=== PATIENT | female | born 1985 | race Caucasian/White ===

== ENCOUNTER 2016-08-31 13:14 | Emergency (ER) | payer OTHER ==
[2016-08-31 13:44] VITALS: BP 110/62; PULSE 80; TEMP 97.9; BMI 29.7
--- NOTE | 2016-08-31 15:22 | PDOC ---
History of Present Illness - General Chief Complaint: Pain, Acute Stated Complaint: ABD PAIN, 18 WKS Time Seen by Provider: 08/31/16 15:16 History Source: Patient Exam Limitations: No Limitations - History of Present Illness Travel History: No Initial Comments: 08/31/16 15:27 Patient is here with complaints of suprapubic pain and cramping. States radiates to back, and has had diarrhea for the past couple days. Denies fever, denies vaginal drainage or bleeding, denies any nausea vomiting. Denies any pain or burning with urine but states has some mild flank pain. Has taken no medications for relief, has never suffered from urinary tract infection. Has had an uncomplicated . 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 denies: stabbing Abdominal Pain Onset Location: reports: suprapubic Pain Radiation: reports: no radiation Activities at Onset: denies: none Alleviating Factors: improves with: None Past History - Travel Traveled outside of the country in the last 30 days: No Close contact w/someone who was outside of country & ill: No - Past Medical History Allergies/Adverse Reactions: Allergies Allergy/AdvReac Type Severity Reaction Status Date / Time No Known Allergies Allergy Verified 08/31/16 13:40 Home Medications: Ambulatory Orders NK [No Known Home Medication] 12/05/15 Asthma: Yes - Surgical History Appendectomy: Yes - Psycho/Social/Smoking Cessation Hx Anxiety: No Suicidal Ideation: No Smoking History: Never smoked Have you smoked in the past 12 months: No Hx Alcohol Use: No Drug/Substance Use Hx: No Substance Use Type: None Review of Systems - Review of Systems Able to Perform ROS?: Yes Is the patient limited Croatian proficient: Yes Constitutional: Yes: Symptoms Reported, See HPI, Malaise. No: Fever, Loss of Appetite HEENTM: No: Symptoms Reported Respiratory: No: Symptoms reported ABD/GI: Yes: Symptoms Reported, See HPI, Diarrhea, Abdominal cramping (mild lower abdomen and suprapubic). No: Abdominal Distended, Nausea, Poor Appetite, Poor Fluid Intake : Yes: See HPI. No: Symptoms Reported Musculoskeletal: Yes: See HPI, Back Pain. No: Symptoms Reported Neurological: Yes: See HPI. No: Symptoms reported All Other Systems: Reviewed and Negative *Physical Exam - Vital Signs Last Vital Signs Temp Pulse Resp BP Pulse Ox 97.9 F 80 14 110/62 99 08/31/16 13:40 08/31/16 13:40 08/31/16 13:40 08/31/16 13:40 08/31/16 13:40 - Physical Exam General Appearance: Yes: Nourished, Appropriately Dressed, Apparent Distress, Mild Distress HEENT: positive: EOMI, AN, Normal ENT Inspection, TMs Normal, Pharynx Normal Neck: positive: Supple. negative: Tender Respiratory/Chest: positive: Lungs Clear, Normal Breath Sounds. negative: Respiratory Distress Gastrointestinal/Abdominal: positive: Soft. negative: Tender (no reproduced tenderness to lower abdomen, has a gravid uterus without tenderness reproduced with palpation. 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 Urinalysis does not reveal a UTI however appearance and symptoms are consistent with a possible UTI. Reviewed that with patient and due to her will hold antibiotics pending culture report. Patient encouraged to rest, drink lots of fluids, and follow-up in 2 days for culture report and understands will be notified if there is a positive urinary tract infection and treatment has been this provided. 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 Understands will return to emergency department for any vaginal drainage or bleeding, fevers , worsened symptoms. *DC/Admit/Observation/Transfer Diagnosis at time of Disposition: Gastroenteritis - Discharge Dispostion Disposition: HOME Condition at time of disposition: Stable Admit: No - Patient Instructions Printed Discharge Instructions: DI for Viral Gastroenteritis -- Adult Additional Instructions: Rest, drink lots of fluids: Teas, water, soups Avoid contact with others until fevers and symptoms resolved Lots of handwashing and good hygiene Continue urxq-cdl-petbter medications for symptomatic relief Tylenol or Motrin for fever and pain Followup with private physician in one week for repeat urinalysis/reevaluation Return to emergency department for worsened symptoms, fevers, dehydration
[2016-08-31] MEDS ORDERED: ACETAMINOPHEN 325 MG TABLET (FP) ONE (15:33)
[2016-08-31 15:56] LABS: URINE APPEARANCE CLOUDY; URINE BILIRUBIN NEGATIVE (NEGATIVE); URINE BLOOD NEGATIVE (NEGATIVE); URINE COLOR YELLOW; URINE GLUCOSE (UA) NEGATIVE (NEGATIVE); URINE KETONE NEGATIVE (NEGATIVE); URINE LEUK ESTERASE NEGATIVE (NEGATIVE); URINE NITRITE NEGATIVE (NEGATIVE); URINE PROTEIN NEGATIVE (NEGATIVE); URINE UROBILINOGEN NEGATIVE E.U./dl (0.2-1.0)
== END 2016-08-31 16:21 | disposition home or self-care (01) ==
LOC: JER 13:14 → JERFT 13:14
DX: O26.892 Other specified pregnancy related conditions, second trimester (principal); K52.9 Noninfective gastroenteritis and colitis, unspecified; Z3A.18 18 weeks gestation of pregnancy
CPT/HCPCS: 81003; 87086; 99281-25

== ENCOUNTER 2019-07-07 14:40 | Emergency (ER) | payer OTHER ==
[2019-07-07 15:00] VITALS: BMI 31.6
--- NOTE | 2019-07-07 15:12 | PDOC ---
History of Present Illness - General Chief Complaint: Chest Pain Stated Complaint: MIGRANE - History of Present Illness Initial Comments: The pt is a 34F w/ a history of asthma who presents for evaluation of 3 days of cough, congestion, HOFFMANN, dizziness, subjective fevers, aches, and b/l chest pain. The chest pain is intermittent, b/l, burning/achy, non-radiating, worse after cough and touch, and not alleviated by anything she can identify. The HOFFMANN is b/l, gradual onset, non-radiating, and not associated with any other neurologic symptoms. Denies flu vaccine or sick contacts 07/07/19 15:25 Past History - Past Medical History Allergies/Adverse Reactions: Allergies Allergy/AdvReac Type Severity Reaction Status Date / Time No Known Allergies Allergy Verified 07/07/19 14:53 Home Medications: Ambulatory Orders predniSONE [Deltasone -] 40 mg PO DAILY #6 tablet 07/07/19 Asthma: Yes COPD: No - Surgical History Appendectomy: Yes - Psycho Social/Smoking Cessation Hx Smoking History: Never smoked Have you smoked in the past 12 months: No Information on smoking cessation initiated: No Hx Alcohol Use: No Drug/Substance Use Hx: No Substance Use Type: None Review of Systems - Review of Systems Able to Perform ROS?: Yes Comments:: GENERAL/CONSTITUTIONAL: No fever. No weakness HEAD, EYES, EARS, NOSE AND THROAT: No change in vision. No change in hearing. No sore throat CARDIOVASCULAR: No chest pain or shortness of breath RESPIRATORY: Denies hemoptysis GASTROINTESTINAL: +nausea; No vomiting, diarrhea or constipation GENITOURINARY: No dysuria, frequency, or change in urination MUSCULOSKELETAL: +myalgias SKIN: No rash NEUROLOGIC: No loss of consciousness, or change in strength/sensation ENDOCRINE: No increased thirst. No abnormal weight change HEMATOLOGIC/LYMPHATIC: No anemia, easy bleeding, or history of blood clots ALLERGIC/IMMUNOLOGIC: No hives or skin allergy 07/07/19 15:11 Is the patient limited Portuguese proficient: No *Physical Exam - Vital Signs Last Vital Signs Temp Pulse Resp BP Pulse Ox 99 H 18 127/81 97 07/07/19 14:55 07/07/19 14:55 07/07/19 14:55 07/07/19 14:55 - Physical Exam GENERAL: Awake, alert, and oriented to person/place/time, in no acute distress HEAD: No signs of trauma, normoc ephalic, atraumatic EYES: PERRLA, EOMI, sclera anicteric, conjunctiva clear ENT: Hearing grossly normal, nares patent, oropharynx clear without exudates. Moist mucosa LUNGS: No distress, speaks in full sentences, clear to auscultation bilaterally HEART: Regular rate and rhythm, normal S1 and S2, no murmurs appreciated, peripheral pulses normal and equal bilaterally CHEST: b/l thoracic wall TTP ABDOMEN: Soft, nontender, normoactive bowel sounds. No guarding, no rebound EXTREMITIES: Normal inspection, Normal range of motion, no edema. No clubbing or cyanosis NEUROLOGICAL: Cranial nerves II through XII grossly intact. Normal speech, normal gait, no focal sensorimotor deficits SKIN: Warm, Dry 07/07/19 15:11 ED Treatment Course - LABORATORY CBC & Chemistry Diagram: 07/07/19 16:01 07/07/19 17:04 Medical Decision Making - Medical Decision Making The pt is a 34F w/ a history of asthma who presents for evaluation of 3 days of cough, congestion, HOFFMANN, dizziness, subjective fevers, aches, and b/l chest pain. Consider viral syndrome, influenza, PNA, not likely ACS given age/risk/history/ exam ED Course CMP, CBC, Serum Preg, Flu swab CXR ECG IVF, Ofirmev, Reglan for symptomatic relief ECG w/ NSR; HR 91: QTc 430; no axis deviation; TWI III, V3-V4; No IBRAHIMA, abn ECG 07/07/19 15:28 No leukocytosis No anemia CXR w/o acute pathology 07/07/19 16:17 Influenza neg 07/07/19 17:31 Pt given duo-neb x2 and prednisone for wheezing which has since resolved Rx for Prednisone 40mg PO daily for 4 days sent to pt's pharmacy Plan for D/C w/ PCP f/u Discharge instructions and return precautions given Patient in agreement and verbalized understanding Dispo: Home 07/07/19 18:10 Discharge - Discharge Information Problems reviewed: Yes Clinical Impression/Diagnosis: Cough, Bronchitis Headache Qualifiers: Headache type: unspecified Headache chronicity pattern: acute headache Intractability: not intractable Qualified Code(s): R51 - Headache Condition: Stable Disposition: HOME - Admission No - Additional Discharge Information Prescriptions: predniSONE [Deltasone -] 40 mg PO DAILY #6 tablet - Follow up/Referral - Patient Discharge Instructions Patient Printed Discharge Instructions: DI for Viral Syndrome Additional Instructions: You were seen in the Emergency Department for evaluation of cough. Your symptoms are likely related to a virus and will likely self resolve within a week. Review the handout provided at discharge. Be sure to frequently wash your hands. Avoid close contact with young children, elderly, or weak immune system. Follow up with your primary care doctor within a week. You were prescribed Prednisone 40mg daily. Take for the next three days starting tomorrow, 07/08/2019. Lo vieron en el departamento de emergencias para evaluar la tos. Es probable que linda sntomas estn relacionados con un virus y es probable que se resuelvan en galileo semana. Revise el folleto proporcionado al osiris. Asegrese de lavarse las john con frecuencia. Evite el contacto cercano con nios pequeos, ancianos o un sistema inmunitario dbil. Tanner un seguimiento con syed mdico de atencin primaria dentro de galileo semana. Le recetaron 40 mg de prednisona al da. Tmelo para los prximos adrian cortes a partir de erendira mijares, 08/07/2019. - Post Discharge Activity Work/Back to School Note: Back to Work
[2019-07-07] MEDS ORDERED: ONDANSETRON 4 MG/2 ML VIAL IVPUSH ONE (15:45)
[2019-07-07] MEDS ORDERED: ACETAMINOPHEN 1000 MG/100 ML VIAL (NON FORMULARY) IVPB ONE (15:45)
[2019-07-07] MEDS ORDERED: ACETAMINOPHEN INJECTION 100 ML IVPB ONE (15:48)
[2019-07-07] MEDS ORDERED: ONDANSETRON 4 MG/2 ML VIAL ONE (15:48)
[2019-07-07] MEDS ORDERED: SODIUM CHLORIDE 0.9% 500 ML INFUS.BAG IV ONE (15:50)
[2019-07-07] MEDS ORDERED: METOCLOPRAMIDE HCL INJECTION 10 MG/2 ML VIAL IVPB ONE (16:03)
[2019-07-07] MEDS ORDERED: METOCLOPRAMIDE HCL INJECTION 10 MG/2 ML VIAL ONE (16:06)
[2019-07-07 16:08] LABS: BASO % 1.2 % (0-2.0); EOS % 0.9 % (0-4.5); HEMATOCRIT 33.5 % (32.4-45.2); HEMOGLOBIN 10.8 GM/dL (10.7-15.3); LYMPH % 31.7 % (8-40); MCH 24.3 pg (25.7-33.7); MCHC 32.2 g/dl (32.0-36.0); MEAN CELL VOLUME 75.5 fl (80-96); MEAN PLT VOLUME 8.3 fl (7.5-11.1); MONO % 14.1 % (3.8-10.2); NEUT % 52.1 % (42.8-82.8); PLATELET COUNT 286 K/MM3 (134-434); RBC 4.44 M/mm3 (3.60-5.2); RDW 17.2 % (11.6-15.6); WHITE BLOOD COUNT 3.2 K/mm3 (4.0-10.0)
[2019-07-07 17:33] LABS: ALBUMIN 3.4 g/dl (3.4-5.0); BILIRUBIN,TOTAL 0.3 mg/dL (0.2-1); BLOOD UREA NITROGEN 8.9 mg/dL (7-18); CALCIUM 8.8 mg/dL (8.5-10.1); CREATININE 0.7 mg/dL (0.55-1.3); POTASSIUM 3.7 mmol/L (3.5-5.1); TOT PROT 7.2 g/dl (6.4-8.2)
[2019-07-07] MEDS ORDERED: predniSONE 20 MG TABLET (UD) PO ONE (17:42)
[2019-07-07] MEDS ORDERED: ALBUTEROL SO4 2.5/IPRATROPIUM 0.5 INH SOL 3 ML VIAL.NEB. NEB SCH (17:45)
[2019-07-07] MEDS: ALBUTEROL SO4 2.5/IPRATROPIUM 0.5 INH SOL 3 ML VIAL.NEB. NEB SCH ×2 (17:45→18:01)
[2019-07-07 17:47] VITALS: BP 115/75; PULSE 72; TEMP 98.5
--- NOTE | 2019-07-07 17:48 | PDOC ---
Documentation entered by Jersey Cheatham SCRIBE, acting as scribe for Luz Maria Combs MD. Luz Maria Combs MD: This documentation has been prepared by the Linden nobles Daniel, SCRIBE, under my direction and personally reviewed by me in its entirety. I confirm that the documentation accurately reflects all work, treatment, procedures, and medical decision making performed by me. Attending Attestation - Resident Resident Name: Philippeana luisaGibran - ED Attending Attestation I have performed the following: I have examined & evaluated the patient, The case was reviewed & discussed with the resident, I agree w/resident's findings & plan, Exceptions are as noted - HPI HPI: 07/07/19 15:47 The patient is a 33 year old female with a past medical history of asthma here today for evaluation of cough and congestion. The patient reports that she has had 3 days of cough and congestion with associated bilateral chest achiness describes as sometimes burning, right arm achiness, general myalgia, and headache. She reports using her nebulizer treatments at home with minimal relief. Patient denies headache, lightheadedness. Denies fever, chills. Denies shortness of breath. Denies nausea, vomiting, diarrhea, abdominal pain. Allergies: NKA - Physicial Exam PE: 07/07/19 17:42 awake alert lungs with bilat wheezing , rhonchorous cough, heart rrr no mrg abd soft nt ext wwp no edema. no calf tenderness. - Medical Decision Making 07/07/19 17:45 34 yo F with h/o asthma here with cough sore throat nasal congestion and wheezing. has been using her inhaler at home some relief. does report subjective fever and chills. sick contact of her daughter with similar sxs. no n /v no abd pain. on my exam pt wtih rhonchorous breath sounds, wheezing at bases. normal effort. plan cxr lab ivf pain conrol flu swab negative. cxr negative. duoneb and steroids. will dc viral uri, bronchospasm Heart Score/ECG Review #1 ECG reviewed & interpreted by me at: 17:47 General ECG Interpretation: Sinus Rhythm, Normal Rate (91), Normal Intervals, No acute ischemic changes
[2019-07-07] MEDS ORDERED: ALBUTEROL SO4 2.5/IPRATROPIUM 0.5 INH SOL 3 ML VIAL.NEB. NEB ONE (17:52)
[2019-07-07] MEDS ORDERED: predniSONE 20 MG TABLET (UD) ONE (17:52)
--- NOTE | 2019-07-08 09:44 | EKG ---
Test Reason : Blood Pressure : / mmHG Vent. Rate : 091 BPM Atrial Rate : 091 BPM P-R Int : 148 ms QRS Dur : 084 ms QT Int : 350 ms P-R-T Axes : 051 042 014 degrees QTc Int : 430 ms NORMAL SINUS RHYTHM NONSPECIFIC T WAVE ABNORMALITY ABNORMAL ECG NO PREVIOUS ECGS AVAILABLE Confirmed by TIO OJHN MD ([id number]) on 07/08/2019 9:43:46 AM Referred By: Confirmed By:TIO JOHN MD
== END 2019-07-07 18:30 | disposition home or self-care (01) ==
LOC: JER 14:40
PROC: 3E0F7GC Introduction of Other Therapeutic Substance into Respiratory Tract, Via Natural or Artificial Opening (ICD-10-PCS; principal; 2019-07-07)
PROC: 3E033NZ Introduction of Analgesics, Hypnotics, Sedatives into Peripheral Vein, Percutaneous Approach (ICD-10-PCS; 2019-07-07)
PROC: 3E033GC Introduction of Other Therapeutic Substance into Peripheral Vein, Percutaneous Approach (ICD-10-PCS; 2019-07-07)
DX: J20.9 Acute bronchitis, unspecified (principal)
CPT/HCPCS: 36415; 71045-TC-FY; 80053; 84703; 85025; 87804; 93005; 93010; 94640; 96374; 96375; 99285-25; J0131

== ENCOUNTER 2022-02-06 23:25 | Emergency (ER) | payer OTHER ==
[2022-02-06 23:54] VITALS: BP 139/78; PULSE 70; RESP 18; TEMP 97.2; BMI 33.3
[2022-02-07] MEDS ORDERED: SODIUM CHLORIDE 0.9% 500 ML INFUS.BAG IV ONE (00:29)
[2022-02-07] MEDS ORDERED: ACETAMINOPHEN 1000 MG/100 ML BAG IVPB ONE (00:29)
[2022-02-07] MEDS ORDERED: ALBUTEROL SO4 2.5/IPRATROPIUM 0.5 INH SOL 3 ML VIAL.NEB. NEB SCH (00:30)
[2022-02-07] MEDS ORDERED: SODIUM CHLORIDE FOR INHALATION 3 ML VIAL.NEB IH ONE (00:31)
[2022-02-07 00:45] LABS: BASO % 0.3 % (0-2.0); HEMATOCRIT 34.3 % (32.4-45.2); HEMOGLOBIN 11.6 GM/dL (10.7-15.3); LYMPH % 34.2 % (8-40); MCH 28.4 pg (25.7-33.7); MCHC 33.8 g/dl (32.0-36.0); MEAN PLT VOLUME 7.8 fl (7.5-11.1); MONO % 7.1 % (3.8-10.2); NEUT % 57.4 % (42.8-82.8); PLATELET COUNT 316 10^3/uL (134-434); RBC 4.08 M/mm3 (3.60-5.2); RDW 13.9 % (11.6-15.6); WHITE BLOOD COUNT 5.9 K/mm3 (4.0-10.0)
[2022-02-07] MEDS ORDERED: ACETAMINOPHEN INJECTION 100 ML IVPB ONE (00:47)
[2022-02-07 01:00] LABS: PH,URINE 6.5 (5.0-8.0); URINE APPEARANCE CLEAR; URINE BILIRUBIN NEGATIVE (NEGATIVE); URINE COLOR YELLOW; URINE GLUCOSE (UA) NEGATIVE (NEGATIVE); URINE KETONE NEGATIVE (NEGATIVE); URINE LEUK ESTERASE NEGATIVE (NEGATIVE); URINE NITRITE NEGATIVE (NEGATIVE); URINE PROTEIN NEGATIVE (NEGATIVE); URINE UROBILINOGEN 0.2 mg/dL (0.2-1.0)
[2022-02-07 01:06] LABS: CALCIUM 9.6 mg/dL (8.5-10.1)
[2022-02-07 01:07] LABS: ALBUMIN 3.4 g/dl (3.4-5.0); BLOOD UREA NITROGEN 9.2 mg/dL (7-18); MAGNESIUM 2.2 mg/dL (1.8-2.4)
[2022-02-07 01:10] LABS: CREATININE 0.9 mg/dL (0.55-1.3)
[2022-02-07 01:11] LABS: BILIRUBIN,TOTAL 0.2 mg/dL (0.2-1); TOT PROT 7.4 g/dl (6.4-8.2)
[2022-02-07 01:36] LABS: ACTIVATED PTT 33.8 SECONDS (25.2-36.5); INR 1.04 (0.83-1.09)
== END 2022-02-07 03:21 | disposition home or self-care (01) ==
LOC: JER 23:25
PROC: 3E0333Z Introduction of Anti-inflammatory into Peripheral Vein, Percutaneous Approach (ICD-10-PCS; principal; 2022-02-06)
DX: R10.32 Left lower quadrant pain (principal); N83.202 Unspecified ovarian cyst, left side
CPT/HCPCS: 36415; 71045-TC-FY; 74177-TC; 76830-TC; 80053; 81003; 83690; 83735; 84703; 85025; 85610; 85730; 86850; 86900; 86901; 87086; 99285-25; Q9967